=== PATIENT | female | born 1950 | race Caucasian/White ===

== ENCOUNTER 2019-12-22 10:21 | Outpatient (CLI) | payer MEDICARE ==
[2019-12-22] MEDS ORDERED: ACET-1600 PO (11:06)
[2019-12-22 11:35] LABS: BASOPHILS # (AUTO) 0.03 x10^3/uL (0-0.1); BASOPHILS % (AUTO) 1 % (0-1); EOSINOPHILS # (AUTO) 0.09 x10^3/uL (0-0.4); EOSINOPHILS % (AUTO) 2 % (1-7); LYMPHOCYTES # (AUTO) 1.56 x10^3/uL (1-3.4); LYMPHOCYTES % (AUTO) 27 % (22-44); MD NO; MEAN CORPUSCULAR HGB CONC 33.3 g/dL (32.4-35.8); MEAN PLATELET VOLUME 8.5 fL (7.4-10.4); MONOCYTES # (AUTO) 0.38 x10^3/uL (0.2-0.8); MONOCYTES % (AUTO) 7 % (2-9); NEUTROPHILS # (AUTO) 3.72 x10^3/uL (1.8-6.8); NEUTROPHILS % (AUTO) 64 % (42-75); PLATELET COUNT 333 x10^3/uL (130-400); RED BLOOD COUNT 4.51 x10^6/uL (3.82-5.3); RED CELL DISTRIBUTION WIDTH 13.8 % (9.6-15.2)
[2019-12-22 11:45] LABS: INTERNATIONAL NORMALIZED RATIO 0.93 (0.93-1.1); PROTHROMBIN TIME 9.8 Seconds (9.6-11.5)
[2019-12-22 12:01] LABS: ALANINE AMINOTRANSFERASE 25 U/L (12-78); ALKALINE PHOSPHATASE 123 U/L (45-117); BILIRUBIN,TOTAL 0.6 mg/dL (0.2-1.0); CREATININE 1.26 mg/dL (0.55-1.02); TOTAL PROTEIN 8.1 g/dL (6.4-8.2)
[2019-12-22 12:08] LABS: ALBUMIN 4.2 g/dL (3.4-5.0); CALCIUM 9.8 mg/dL (8.5-10.1)
[2019-12-22 12:12] LABS: ANION GAP 6 mmol/L (5-15); CHLORIDE 105 mmol/L (98-107)
[2019-12-22 12:54] LABS: MICROSCOPIC AUTO
== END 2019-12-22 23:59 | disposition home or self-care (01) ==
LOC: STAR 10:21
PROVIDERS: ATTEND Orthopaedic Surgery
DX: Z01.818 Encounter for other preprocedural examination (principal); M18.12 Unilateral primary osteoarthritis of first carpometacarpal joint, left hand; R94.31 Abnormal electrocardiogram [ECG] [EKG]
CPT/HCPCS: 36415; 80053; 81001; 83036; 85025; 85610; 85730; 86701; 86702; 87081; 87086; 87186; 87535; 87806; 93005; G0475

== ENCOUNTER 2019-12-29 09:01 | Observation (INO) | payer MEDICARE ==
[~2019-12-29] VITALS: Ht 170.2 cm; Wt 80.4 kg
[~2019-12-29 09:01] MED LIST: ACET-1600 PO
[2019-12-29] MEDS ORDERED: MIDAZOLAM 1 MG/ML, 2ML ONE (09:03)
[2019-12-29] MEDS ORDERED: FENTANYL PF 250 MCG/5ML ONE (09:04)
[2019-12-29 09:24] VITALS: BP 165/93
[2019-12-29] MEDS ORDERED: VANCOMYCIN 1,700 MG in SODIUM CHLORIDE 0.9% 250 ML IV ONE (09:30)
[2019-12-29] MEDS ORDERED: ACETAMINOPHEN 500 MG TABLET PO ONE (09:30)
[2019-12-29] MEDS ORDERED: CHLORHEXIDINE 15 ML UDC MM ONE (09:30)
[2019-12-29] MEDS ORDERED: GABAPENTIN 300 MG CAPSULE PO ONE (09:30)
[2019-12-29] MEDS ORDERED: VANCOMYCIN PER PHARMACY MC ONE (09:30)
[2019-12-29] MEDS ORDERED: TRANEXAMIC ACID 100 MG/ML, 10ML ONE (09:49)
[2019-12-29] MEDS ORDERED: KETOROLAC 60 MG/2 ML ONE (09:49)
[2019-12-29] MEDS ORDERED: ROPIvacaine/PF 0.2%, 20 ML ONE (09:50)
[2019-12-29] MEDS ORDERED: EPINEPHRINE 1 MG/ML, 1ML ONE (09:50)
[2019-12-29] MEDS ORDERED: SODIUM CHLORIDE 0.9% 50 ML ONE (09:50)
[2019-12-29] MEDS: LACTATED RINGERS 1,000 ML IV SCH ×2 (10:02→15:39)
[2019-12-29] MEDS ORDERED: ONDANSETRON 2MG/ML, 2ML ONE (10:56)
[2019-12-29] MEDS ORDERED: ROCURONIUM 10 MG/ML,10ML ONE (10:56)
[2019-12-29] MEDS ORDERED: DEXAMETHASONE 4 MG/ML, 1ML ONE (10:56)
[2019-12-29] MEDS ORDERED: SUCCINYLCHOLINE 20 MG/ML, 10ML ONE (10:56)
[2019-12-29] MEDS ORDERED: PROPOFOL 10 MG/ML, 100ML IV ONE (10:56)
[2019-12-29] MEDS ORDERED: CEFAZOLIN PMX 2GM/50ML IVPB ONE (10:56)
[2019-12-29] MEDS ORDERED: KETOROLAC 60 MG/2 ML IM ONE (11:26)
[2019-12-29] MEDS ORDERED: EPINEPHRINE 1 MG/ML, 1ML IM ONE (11:26)
[2019-12-29] MEDS ORDERED: ROPIvacaine/PF 0.2%, 20 ML INFIL ONE (11:26)
[2019-12-29] MEDS ORDERED: LABETALOL 5MG/ML, 20ML IV PRN (12:00)
[2019-12-29] MEDS ORDERED: DIAZEPAM 5 MG/ML, 2ML IV PRN ×2 (12:00)
[2019-12-29] MEDS ORDERED: OXYcodone 5 MG/5 ML ORAL.SOL UDC PO PRN (12:00)
[2019-12-29] MEDS ORDERED: ALBUTEROL SULFATE 2.5 MG/3 ML NPPB PRN (12:00)
[2019-12-29] MEDS ORDERED: METOCLOPRAMIDE 5 MG/ML, 2ML IV PRN (12:00)
[2019-12-29] MEDS ORDERED: PROMETHAZINE 25 MG/ML, 1ML IV PRN (12:00)
[2019-12-29] MEDS ORDERED: KETOROLAC 30 MG/1 ML IV PRN (12:00)
[2019-12-29] MEDS ORDERED: hydrALAzine 20 MG/ML, 1ML IV PRN (12:00)
[2019-12-29] MEDS ORDERED: MEPERIDINE/PF 25MG/0.5ML IVPush PRN (12:00)
[2019-12-29] MEDS ORDERED: HYDROmorphone 1 MG/ML, 1ML INJ IV PRN (12:00)
[2019-12-29] MEDS ORDERED: ONDANSETRON 2MG/ML, 2ML IVPush PRN ×2 (12:00→13:00)
[2019-12-29] MEDS ORDERED: OXYcodone 5 MG/5 ML ORAL.SOL UDC ONE (12:42)
[2019-12-29] MEDS ORDERED: FENTANYL PF 100 MCG/2ML ONE (12:42)
[2019-12-29] MEDS ORDERED: POTASSIUM CHLORIDE 20 MEQ in D5%-0.45% NACL 1,000 ML IV SCH (12:44)
[2019-12-29] MEDS: FENTANYL PF 100 MCG/2ML IV PRN ×2 (12:46→12:54)
[2019-12-29] MEDS ORDERED: DIAZEPAM 5 MG/ML, 2ML ONE (12:56)
[2019-12-29] MEDS ORDERED: KETOROLAC 30 MG/1 ML IV SCH (13:00)
[2019-12-29] MEDS ORDERED: ALUMINUM/MAG/SIMETHICONE 30 ML UDC PO PRN (13:00)
[2019-12-29] MEDS ORDERED: ONDANSETRON 4 MG TABLET PO PRN (13:00)
[2019-12-29] MEDS ORDERED: DIPHENHYDRAMINE 25 MG CAPSULE PO PRN (13:00)
[2019-12-29] MEDS ORDERED: PSYLLIUM PACKET PO PRN (13:00)
[2019-12-29] MEDS ORDERED: TRANEXAMIC ACID 1,000 MG in SODIUM CHLORIDE 0.9% 100 ML IVPB ONE (13:00)
[2019-12-29] MEDS ORDERED: METOCLOPRAMIDE 5 MG/ML, 2ML IVPush PRN (13:00)
[2019-12-29] MEDS ORDERED: SENNA/DOCUSATE TABLET PO PRN (13:00)
[2019-12-29] MEDS ORDERED: DIPHENHYDRAMINE 50 MG/ML, 1ML IVPush PRN (13:00)
[2019-12-29] MEDS ORDERED: HYDROmorphone 1 MG/ML, 1ML INJ IVPush PRN (13:00)
[2019-12-29] MEDS ORDERED: OXYcodone IR 5MG TABLET PO PRN (13:00)
[2019-12-29] MEDS ORDERED: PROMETHAZINE 12.5 MG SUPP PR PRN (13:00)
[2019-12-29] MEDS ORDERED: ACETAMINOPHEN 650 MG/20.3 ML UDC PO PRN (13:00)
[2019-12-29] MEDS ORDERED: POLYETHYLENE GLYCOL 17 GM PACKET PO PRN (13:00)
[2019-12-29] MEDS ORDERED: CEFAZOLIN PMX 1GM/50ML 50 ML IVPB SCH (13:00)
[2019-12-29] MEDS ORDERED: HYDROmorphone 1 MG/ML, 1ML INJ ONE (13:31)
[2019-12-29] MEDS ORDERED: hydrALAzine 20 MG/ML, 1ML ONE (13:40)
[2019-12-29 14:10] VITALS: BP 145/92
[2019-12-29] MEDS ORDERED: DEXAMETHASONE 4 MG/ML, 1ML IVPush ONE (14:15)
[2019-12-29] MEDS ORDERED: DEXAMETHASONE 4 MG TABLET PO ONE (16:00)
[2019-12-29] MEDS ORDERED: ASPI-515 PO (16:48)
[2019-12-29] MEDS ORDERED: DOCUSATE 100 MG CAPSULE PO SCH (21:00)
[2019-12-29] MEDS ORDERED: ASPIRIN 81 MG TABLET EC PO SCH (21:00)
[2019-12-30] MEDS ORDERED: DEXAMETHASONE 4 MG/ML, 1ML IVPush ONE (06:00)
[2019-12-30] MEDS ORDERED: TAMSULOSIN 0.4 MG CAP.ER.24H PO SCH (09:00)
== END 2019-12-29 17:32 | disposition home or self-care (01) ==
LOC: OUT 09:01 → ORIP 12:44 → 4NE 14:03
PROVIDERS: ADMIT Orthopaedic Surgery; ATTEND Orthopaedic Surgery
DX: Z03.818 Encounter for observation for suspected exposure to other biological agents ruled out (principal); M87.9 Osteonecrosis, unspecified; M16.0 Bilateral primary osteoarthritis of hip
CPT/HCPCS: 27130; 36415; 72170; 86850; 86900; 87635; 97162; C1713; C1776; G0378; J0171; J0330; J0360; J0690; J1100; J1170; J1885; J2250; J2405; J2704; J2795; J3010; J3360; J3370; J7050; J7120